=== PATIENT | male | born 1950 | race Caucasian/White ===

== ENCOUNTER 2017-01-13 19:00 | Emergency (ER) | payer BC ==
[~2017-01-13] VITALS: Ht 167.6 cm; Wt 85.6 kg
[~2017-01-13 19:00] MED LIST: ASCO500T3 PO; CHOL20009 PO; CLBCRM30 EXT; ETAN50IN2 SQ; FOLI1TAB7 PO; INDO75CA PO; LANS30CA12 PO; METH2.5T PO; PRED-301 PO; RANI150T3 PO; TRIA0.1C20 TOP
[2017-01-13 19:05] VITALS: TEMP 36.8; Ht 167.6 cm; Wt 85.6 kg
[2017-01-13] MEDS ORDERED: MoRPHine SULFATE 10 MG/ML CARP/VIAL IM STA (19:17)
[2017-01-13] MEDS ORDERED: KETOROLAC TROMETHAMINE 60 MG/2 ML VIAL IM STA (19:17)
--- NOTE | 2017-01-13 20:04 | DIAGNOSTIC IMAGING REPORT ---
LUMBAR SPINE 5 VIEWS HISTORY: Right side low back pain with sciatica sx COMPARISON: Lumbar spine 09/20/2013. FINDINGS: There is no fracture. Large amount well-formed stool seen within the colon, unchanged. Multiple metallic sutures are also within the lower pelvis. Multiple pelvic phleboliths. Cholecystectomy. The sacrum is intact. 3 mm of retrolisthesis of L5 on S1, unchanged. Mild disc space narrowing at L5-S1 with vacuum phenomenon. Mild facet osteoarthritis within the lower lumbar spine. IMPRESSION: No fracture or subluxation within the lumbar spine. No change in the mild degenerative changes within the lower lumbar spine. Electronically signed by: Javier Sanchez M.D. 01/13/2017 8:02 PM Dictated Date/Time: 01/13/2017 8:00 PM
[2017-01-13] MEDS ORDERED: PRD/1 PO (20:11)
[2017-01-13 21:19] VITALS: BP 131/83; PULSE 57; O2SAT 95
[2017-01-13] MEDS ORDERED: OXYC1TAB3 PO (21:19)
[2017-01-13] MEDS ORDERED: CYCL10TA6 PO (21:19)
[2017-01-13] MEDS ORDERED: PRED20TA2 PO (21:19)
[2017-01-13] MEDS ORDERED: OXYCODONE IR HOME PACK PO ONE (21:30)
--- NOTE | 2017-01-14 01:02 | EMERGENCY ROOM VISIT NOTE ---
ED Visit Note First contact with patient: 19:07 CHIEF COMPLAINT: Low back pain HISTORY OF PRESENT ILLNESS: This 66-year-old male patient presents to the emergency department complaining of pain in the low back which began worsening over the past one day. The pain does radiate down his right leg. The pain was gradual in onset, is now constant and worse with movement. The patient notes the pain as dull and a 7/10. The patient has taken Tylenol without relief of the pain. The patient denies any loss of control of their bowel or bladder functions. There has been no leg numbness or weakness, and no change in sensation. No nausea or vomiting or abdominal pain. No chest pain or shortness of breath. The patient has periodically had symptoms like this in the past, but does not have a history of back surgery. No dysuria or increased urinary frequency. REVIEW OF SYSTEMS: A review of systems was performed with positives and pertinent negatives listed in the history of present illness. All other systems were reviewed and are negative. ALLERGIES: See EMR MEDICATIONS: See EMR PMH: See EMR SOCIAL HISTORY: Lives with family PHYSICAL EXAM: VITALS: Vitals are noted on the nurse's note and reviewed by myself. Vital signs stable. GENERAL: White male, in no acute distress, nondiaphoretic, well-developed well- nourished. SKIN: The skin was without rashes, erythema, edema, or bruising. Capillary refill less than 2 seconds. NECK: Supple without nuchal rigidity. No cervical spine tenderness. No paraspinous muscle tenderness. HEART: Regular rate and rhythm without murmurs gallops or rubs. LUNGS: Clear to auscultation bilaterally without wheezes, rales or rhonchi. ABDOMEN: Positive bowel sounds x 4. Normal tympanic percussion. Soft, nontender, without masses or organomegaly. Harrell sign negative. MUSCULOSKELETAL: No muscle atrophy, erythema, or edema noted of the back. There is right-sided lower tenderness over the lumbar spinous processes. There is no tenderness over the paraspinous muscles. There is no tenderness over the thoracic spine or paraspinous muscles. There are no muscle spasms present. The patient is slow to move around with maximum tenderness with flexion. Positive right straight leg raise test. NEURO: Patient was alert and oriented to person place and time. Normal sensation to light and sharp touch. Deep tendon reflexes 2+ in the lower extremities. Dorsalis pedis pulse 2+ bilaterally. Strength 5/5 and equal in the bilateral lower extremities. LUMBAR SPINE 5 VIEWS HISTORY: Right side low back pain with sciatica sx COMPARISON: Lumbar spine 09/20/2013. FINDINGS: There is no fracture. Large amount well-formed stool seen within the colon, unchanged. Multiple metallic sutures are also within the lower pelvis. Multiple pelvic phleboliths. Cholecystectomy. The sacrum is intact. 3 mm of retrolisthesis of L5 on S1, unchanged. Mild disc space narrowing at L5-S1 with vacuum phenomenon. Mild facet osteoarthritis within the lower lumbar spine. IMPRESSION: No fracture or subluxation within the lumbar spine. No change in the mild degenerative changes within the lower lumbar spine. EMERGENCY DEPARTMENT COURSE: Physical examination were performed. Nursing notes and EMR were reviewed. The patient presents have right-sided low back pain that radiates down his right leg. He does have a positive straight leg raise. I discussed options of care with the patient and elected to provide him IM morphine and IM Toradol. X-rays were obtained and does not show evidence of fracture or subluxation. On repeat evaluation the patient felt much better and was very comfortable with his pain. Overall the patient seems stable for discharge home. He is without neurologic deficit. I suspect sciatica and will give him a course of prednisone, Flexeril, and OxyIR. The patient is to follow with his PCP or orthopedist for further care and management. He is otherwise invited back to the ER with any new, worsening, or concerning symptoms. Problem List Medical Problems: (1) Gastroesophageal reflux Status: Chronic (2) Psoriatic arthritis Status: Chronic Surgical Problems: (1) H/O bilateral inguinal hernia repair Status: Resolved (2) H/O umbilical hernia repair Status: Resolved (3) Hx of cholecystectomy Status: Resolved Current/Historical Medications Scheduled Ascorbic Acid (Vitamin C), 1 TAB PO QAM Cholecalciferol (Vitamin D), 2,000 UNITS PO QAM Cyclobenzaprine Hcl (Flexeril), 10 MG PO TID Etanercept (Enbrel), 50 MG SQ WK Folic Acid (Folvite), 1 TAB PO QAM Indomethacin Ext Rel (Indocin Ext Rel), 75 MG PO BID Lansoprazole (Prevacid), 30 MG PO QAM Methotrexate Sodium (Methotrexate), 6 TAB PO WK Oxycodone Immediate Rel Tab (Roxicodone Ir), 1 TAB PO Q6 Prednisone (Prednisone), 2 MG PO DAILY Prednisone (Prednisone Tab), 2 TAB PO DAILY Ranitidine Hcl (Zantac), 150 MG PO QPM Scheduled PRN Clobetasol Propionate (Clobetasol Propionate Cream 0.05%), 1 APPLN EXT BID PRN for RN Allergies Coded Allergies: Food (Verified Allergy, Unknown, CRAB CAKES-SOMETIMES RASH, 01/14/16) Oily Fish (Verified Allergy, Unknown, ALLERGY TO SEAFOOD-HIVES, 01/14/16) Shellfish (Verified Allergy, Unknown, ALLERGY TO SEAFOOD-HIVES, 01/14/16) Tamsulosin (Verified Allergy, Unknown, HEADACHES, 01/14/16) White Fish (Verified Allergy, Unknown, ALLERGY TO SEAFOOD-HIVES, 01/03/16) Vital Signs Date Time Temp Pulse Resp B/P (MAP) Pulse Ox O2 Delivery O2 Flow Rate FiO2 01/13/17 21:19 57 20 131/83 95 Room Air 01/13/17 19:05 36.8 62 16 141/88 95 Room Air Medications Administered Medications (Trade) Dose Ordered Sig/Eric Route Start Time Stop Time Status Last Admin Dose Admin Morphine Sulfate (MoRPHine SULFATE INJ) 8 mg NOW STAT IM 01/13/17 19:17 01/13/17 19:19 DC 01/13/17 19:38 8 MG Ketorolac Tromethamine (Toradol Inj) 60 mg NOW STAT IM 01/13/17 19:17 01/13/17 19:19 DC 01/13/17 19:37 60 MG Oxycodone HCl (Roxicodone Immediate Rel 5MG Home Pack) 1 homepack UD ONCE PO 01/13/17 21:30 01/13/17 21:31 DC 01/13/17 21:26 1 HOMEPACK Departure Information Impression Primary Impression: Low back pain with sciatica Dispostion Home / Self-Care Condition GOOD Prescriptions Cyclobenzaprine Hcl (FLEXERIL) 10 Mg Tab 10 MG PO TID for 7 Days, #21 TAB Prov: Marcial Fernandez PA-C 01/13/17 Oxycodone Immediate Rel Tab (ROXICODONE IR) 5 Mg Tab 1 TAB PO Q6 for Pain, #12 TAB Prov: Marcial Fernandez PA-C 01/13/17 Prednisone (Prednisone Tab) 20 Mg Tab 2 TAB PO DAILY for 5 Days, #10 TAB Prov: Marcial Fernandez PA-C 01/13/17 Forms HOME CARE DOCUMENTATION FORM, IMPORTANT VISIT INFORMATION Patient Instructions My [facility] Additional Instructions You were seen and evaluated today on an emergency basis only. This is not a substitute for, or an effort to provide, complete comprehensive medical care. It is not possible to recognize and treat all injuries or illnesses in a single emergency department visit. For this reason it is recommended that you followup with your primary care physician or orthopedist if symptoms persist over the next week. For baseline pain relief you may alternate ibuprofen and acetaminophen every 4 hours for pain control. Take 600 mg ibuprofen (Advil) and then 4 hours later take 1000 mg acetaminophen (Tylenol). Do not take more than 3000 mg acetaminophen in a single day. Flexeril 1 tablet up to 3 times a day as needed for muscle spasms. No driving, working, or alcohol use with Flexeril. Oxycodone (OxyIR) 5mg: Take ONE pill every SIX hours for breakthrough pain. Avoid alcohol, operating machinery or dangerous equipment, working on ladders or roofs, DRIVING, or situations where being under the influence may be dangerous. It is recommended to use an [id number] stool softener such as Colace, 100mg twice daily while taking this medication to avoid constipation. Take prednisone as prescribed You are welcome to return to the emergency department anytime with new, worsening, or concerning symptoms.
== END 2017-01-13 21:35 | disposition home or self-care (01) ==
LOC: C.EDB 19:01 → C.EDD 21:35
DX: M54.40 Lumbago with sciatica, unspecified side (principal); K21.9 Gastro-esophageal reflux disease without esophagitis; Z90.49 Acquired absence of other specified parts of digestive tract; Z79.899 Other long term (current) drug therapy; Z88.8 Allergy status to other drugs, medicaments and biological substances; Z91.018 Allergy to other foods

== ENCOUNTER → 2017-03-23 | Outpatient (CLI) | payer BC ==
[~2017-03-23] MED LIST changes: +OXYC1TAB3 PO; +PRD/1 PO; -PRED-301 PO; -TRIA0.1C20 TOP
--- NOTE | 2017-03-23 21:44 | DIAGNOSTIC IMAGING REPORT ---
LUMBAR SPINE W/O CONTRAST HISTORY: Pain. Radiculopathy. LOWER BACK PAIN TECHNIQUE: Multiplanar multisequence MRI of the lumbar spine was performed without the use of contrast. COMPARISON: 01/24/2015 FINDINGS: For the purpose of the report the L5-S1 disc space will be located on axial image 27 of 30. Moderate degenerative disc changes throughout. Minimal grade 1 reversal subluxation L5 on S1 unchanged from the prior study. No bone marrow replacing process. L1-L2: Minimal osteophytic narrowing right neuroforamina. Otherwise negative study L2-L3: Mild broad-based disc herniation. Mild impact anterior thecal sac. Minimal narrowing of the neuroforamina bilaterally. No significant change in the prior study. L3-L4: Broad-based right central bulging disc versus mild disc herniation. Moderate narrowing right neuroforamina. Similar/slightly progressive compared to the prior study. L4-L5: Moderate/slightly progressive multifactorial narrowing of the spinal canal. Moderate narrowing of the neuroforamina bilaterally. Findings are again slightly progressive compared to the prior exam. L5-S1: Right posterior bulging disc with minimal impact anterior thecal sac and moderate narrowing of the neuroforamina bilaterally. Findings are slightly progressive compared to the prior exam. IMPRESSION: 1. Multilevel bulging disc components with moderate bilateral narrowing of the neuroforamina as described. 2. Findings at L4-L5 are slightly progressive and are consistent with moderate/rather significant multifactorial narrowing of the spinal canal and neural foramina. 3. Right central bulging disc L5-S1 with narrowing of the neuroforamina bilaterally mildly progressive from the prior study. 4. All remaining levels are similar The above report was generated using voice recognition software. It may contain grammatical, syntax or spelling errors. Electronically signed by: Dequan Xavier M.D. 03/23/2017 9:43 PM Dictated Date/Time: 03/23/2017 9:39 PM
== END | disposition home or self-care (01) ==
LOC: C.MRI 20:18
PROVIDERS: ATTEND Physician Assistant
DX: M54.5 Low back pain (principal)

== ENCOUNTER → 2017-04-16 | Outpatient (CLI) | payer BC ==
[~2017-04-16] MED LIST changes: +OPTIRAY 320 IV PRN
--- NOTE | 2017-04-16 11:11 | DIAGNOSTIC IMAGING REPORT ---
CHEST CT WITH CONTRAST CT DOSE: 399.83 mGy.cm HISTORY: Follow-up LUNG NODULE TECHNIQUE: Multiaxial CT images of the chest were performed following the intravenous administration of contrast. A dose lowering technique was utilized adhering to the principles of ALARA. COMPARISON: Chest CT 01/03/2016. FINDINGS: The central airways are patent. No pleural effusions. No pneumothorax. Linear density within the lingula remain stable and likely represents scarring. There are again noted a few scattered subcentimeter pulmonary nodules. Dominant nodule within the left lower lobe on image 239 measures 6 mm. These nodules demonstrate greater than 2 year stability. No focal lung consolidations to suggest pneumonia. No suspicious lytic or blastic osseous lesions. Cholecystectomy. Stable punctate calcified granulomas within the liver and spleen. Stable left hepatic lobe cyst. No mediastinal or hilar lymphadenopathy. Calcified mediastinal and hilar lymph nodes. Normal caliber thoracic aorta. The central pulmonary arteries are patent. IMPRESSION: No change compared to the prior studies. Stable subcentimeter pulmonary nodules which demonstrate greater than 2 year stability. Therefore, these are likely benign. Electronically signed by: Jvaier Sanchez M.D. 04/16/2017 11:10 AM Dictated Date/Time: 04/16/2017 11:03 AM
== END | disposition home or self-care (01) ==
LOC: C.CTS 10:45
PROVIDERS: ATTEND Family Medicine
DX: R91.8 Other nonspecific abnormal finding of lung field (principal)

== ENCOUNTER → 2017-05-04 | Outpatient (CLI) | payer BC ==
[~2017-05-04] MED LIST changes: -OPTIRAY 320 IV PRN
== END | disposition home or self-care (01) ==
LOC: C.MAMM 13:15
PROVIDERS: ATTEND Family Medicine
DX: Z79.52 Long term (current) use of systemic steroids (principal); M85.89 Other specified disorders of bone density and structure, multiple sites; M81.0 Age-related osteoporosis without current pathological fracture

== ENCOUNTER → 2017-06-16 | Day surgery (SDC) | payer BC ==
[2017-06-09 07:38] VITALS: Ht 170.2 cm; Wt 81.8 kg
[~2017-06-16] VITALS: Ht 170.2 cm; Wt 81.8 kg
[~2017-06-16] MED LIST changes: -ASCO500T3 PO; +BUPIVACAINE 0.25% 2.5MG/ML PF 10 ML VIAL ONE; +CLB/200 PO; -INDO75CA PO; +IOPAMIDOL INJ 61% 15 ML VIAL ONE; +LIDOCAINE HCL 1% MPF 5 ML VIAL ONE; -OXYC1TAB3 PO; -PRD/1 PO; +PRED-301 PO; -RANI150T3 PO
--- NOTE | 2017-06-16 14:15 | History & Physical Bridge - SC ---
H&P Re-Evaluation Bridge Note: I have examined the patient, reviewed the History & Physical and in the interval since the performance of the History & Physical I have noted the following changes of clinical significance: No changes noted
[2017-06-16 14:40] VITALS: TEMP 36.5
--- NOTE | 2017-06-16 14:46 | Discharge Instructions ---
Discharge Instructions Date of Service Jun 16, 2017. Visit Reason for Visit: Lumbosacral Radiculopathy Discharge Discharge Diagnosis / Problem: right leg pain Discharge Goals Goal(s): Decrease discomfort, Improve function Activity Recommendations Activity Limitations: resume your previous activity Anesthesia . Post Anesthesia Instructions: If you have had General Anesthesia or IV Sedation: * Do not drive today. * Resume driving when surgeon permits. * Do not make important decisions or sign legal documents today. * Call surgeon for: 1. Temperature elevations greater than 101 degrees F. 2. Uncontrollable pain. 3. Excessive bleeding. 4. Persistent nausea and vomiting. 5. Medication intolerance (nausea, vomiting or rash). * For nausea and vomiting use only clear liquids such as: tea, soda, bouillon until nausea subsides, then gradually increase diet as tolerated. * If you have any concerns or questions, call your surgeon's office. If physician is unavailable and it is an emergency, call 911 or go to the nearest emergency room. . Diet Recommendations Recommended Home Diet: resume previous diet Procedures Procedures Performed: RIGHT SI TRANSFORAMINAL EPIDURAL STEROID INJECTION. Pending Studies Studies pending at discharge: no Medical Emergencies . Who to Call and When: Medical Emergencies: If at any time you feel your situation is an emergency, please call 911 immediately. . Non-Emergent Contact Non-Emergency issues call your: Specialist . . "Provider Documentation" section prepared by Chico Rodriguez. .
[2017-06-16 14:52] VITALS: BP 136/82; PULSE 62; O2SAT 95
--- NOTE | 2017-06-16 15:09 | OPERATIVE REPORT ---
DATE OF OPERATION: 06/16/2017 PREOPERATIVE DIAGNOSIS: Right S1 radiculopathy. POSTOPERATIVE DIAGNOSIS: Same. PROCEDURE: Right selective S1 nerve root block via transforaminal approach. INDICATIONS: The patient is a 66-year-old white male that was referred by Dr. Dequan Bullock for suspicion of an S1 radiculopathy. He requested a selective nerve root block to confirm this as the etiology of the patient's pain radiates from the back into the calf and into the foot. PHYSICAL EXAMINATION: GENERAL: Pleasant male seated comfortably in no apparent distress. MUSCULOSKELETAL: Lumbar paraspinal muscles were palpated. He had some sensations to palpation of his right sciatic notch. He had no issues with forward flexion or extension. He had intact sensation and negative seated straight leg raises. CONSENT: Verbal and written consent was obtained from the patient. Risks and benefits were reviewed. Risks include, but are not limited to abscess and allergic reaction. The patient wishes to proceed. DESCRIPTION OF PROCEDURE: The patient was taken back into the special procedures room of the [facility], where he was maintained in a prone position. Backside was cleansed with Betadine x3 and a dry sterile dressing was applied. Fluoroscope was used to identify the S1 foramen on the right side. Overlying skin was anesthetized with 4 mL of lidocaine 1% with a 25-gauge 1-1/2 inch needle. A 22-gauge 3-1/2 inch spinal needle was then directed under fluoroscopic guidance into the S1 foramen. It was advanced under fluoroscopic guidance and the patient began to feel some pressure into the buttocks. Then, Isovue 300 contrast 0.25 of a mL was injected in which demonstrated it to be within the foramen and tracking the S1 nerve root superiorly. He then underwent injection after negative aspiration of 40 mg of Depo-Medrol and 1.5 mL of bupivacaine 0.25%. Injection was well tolerated. DISPOSITION: 1. The patient was taken out into the discharge recovery area, where he will be discharged home once discharge criteria have been met. 2. Follow up in the [facility] office in 2-4 weeks. I attest to the content of the Intraoperative Record and any orders documented therein. Any exceptions are noted below. JENNIFER
== END | disposition home or self-care (01) ==
LOC: X.SURG 13:12
PROVIDERS: ATTEND Physical Medicine & Rehabilitation
DX: M54.18 Radiculopathy, sacral and sacrococcygeal region (principal)

== ENCOUNTER → 2017-09-24 | Outpatient (CLI) | payer BC ==
[~2017-09-24] MED LIST changes: -BUPIVACAINE 0.25% 2.5MG/ML PF 10 ML VIAL ONE; -FOLI1TAB7 PO; +FOLI1TAB8 PO; -IOPAMIDOL INJ 61% 15 ML VIAL ONE; -LIDOCAINE HCL 1% MPF 5 ML VIAL ONE
--- NOTE | 2017-09-24 13:22 | DIAGNOSTIC IMAGING REPORT ---
LUMBAR SPINE 2 OR 3 VIEWS HISTORY: 67 years-old Male S/P LUMBAR DISCECTOMY status post discectomy COMPARISON: Lumbar spine radiographs 01/13/2017, spot fluoroscopic images 06/16/2017 TECHNIQUE: 2 views of the lumbar spine FINDINGS: Mild levoscoliosis of the lumbar spine. Multilevel intervertebral disc space narrowing redemonstrated, most pronounced at L5-S1. Multilevel endplate spurring and moderate facet arthrosis. No acute fracture or subluxation identified. Cholecystectomy clips are noted. Prior abdominal wall herniorrhaphy. A few nonspecific small bowel air-fluid levels of the left midabdomen. Moderate volume of formed stool involves the right hemicolon. IMPRESSION: 1. No acute fracture or subluxation. 2. Mild levoscoliosis with unchanged appearance of multilevel intervertebral disc space narrowing, endplate spurring and facet arthrosis as above. The above report was generated using voice recognition software. It may contain grammatical, syntax or spelling errors. Electronically signed by: Ashish Deleon M.D. 09/24/2017 1:21 PM Dictated Date/Time: 09/24/2017 1:09 PM
== END | disposition home or self-care (01) ==
LOC: C.RDSM 09:32
PROVIDERS: ATTEND Orthopaedic Surgery
DX: Z98.890 Other specified postprocedural states (principal)

== ENCOUNTER 2018-11-04 16:41 | Observation (INO) ==
[2018-11-04 18:07] LABS: Basophils # (auto) 0.01 K/uL (0-0.2); Basophils % (auto) 0.2 %; Eosinophils # (auto) 0.08 K/uL (0-0.5); Eosinophils % (auto) 1.3 %; Hematocrit (blood only) 38.1 % (42-52); Hemoglobin 13.1 g/dL (14.0-18.0); Immature Granulocytes # (auto) 0.03 K/uL (0.00-0.02); Immature Granulocytes % (auto) 0.5 %; Lymphocytes # (auto) 0.91 K/uL (1.2-3.4); Lymphocytes % (auto) 14.5 %; Mean Corpuscular Hgb Conc 34.4 g/dL (32-36); Mean Corpuscular Volume 94.1 fL (80-100); Mean Platelet Volume 10.7 fL (7.4-10.4); Monocytes # (auto) 1.06 K/uL (0.11-0.59); Monocytes % (auto) 16.9 %; Neutrophils % (auto) 66.6 %; Platelet Count 239 K/uL (130-400); RDW Coefficient of Variation 15.6 % (11.5-14.5); RDW Standard Deviation 53.6 fL (36.4-46.3); Red Blood Count 4.05 M/uL (4.7-6.1); White Blood Count 6.29 K/uL (4.8-10.8)
[2018-11-04 18:21] LABS: Partial Thromboplastin Ratio 0.8; Partial Thromboplastin Time 21.4 Seconds (21.0-31.0); Prothrombin Time 10.3 Seconds (9.0-12.0)
[2018-11-04 18:26] LABS: Alanine Aminotransferase 31 U/L (12-78); Albumin Level 3.7 gm/dl (3.4-5.0); Aspartate Aminotransferase 22 U/L (15-37); BUN Creatinine Ratio 21.9 (10-20); Blood Urea Nitrogen 24 mg/dl (7-18); Calcium 9.5 mg/dl (8.5-10.1); Carbon Dioxide 27 mmol/L (21-32); Chloride 107 mmol/L (98-107); Creatinine Clr Calc Pharmacy 63.6 ml/min; Est GFR (African American) 79.8; Est GFR (Non-African American) 68.9; Glucose 71 mg/dl (70-99); Potassium 3.9 mmol/L (3.5-5.1); Sodium 138 mmol/L (136-145)
[2018-11-04 18:31] LABS: Albumin Globulin Ratio 0.8 (0.9-2); Alkaline Phosphatase 92 U/L (45-117); Bilirubin,Total 0.4 mg/dl (0.2-1); Globulin 4.9 gm/dl (2.5-4.0); Total Protein 8.6 gm/dl (6.4-8.2); Troponin I < 0.015 ng/ml (0-0.045)
--- NOTE | 2018-11-04 18:57 | History & Physical Report ---
Date of Service November 04, 2018 Assessment & Plan (1) Pulmonary embolus: Seen incidentally on chest CT which was obtained as outpatient by Dr. Jefferson in preparation for tissue biopsy for definitive diagnosis of his intraabdominal mass. His solitary PE is likely cancer-related as there is high suspicion he has lymphoma. Plan - 1. heparin drip overnight - use adult weight-based with bolus. 2. I placed a phone call to general surgery regarding his chest CT results. If they feel they could do an excisional lymph node biopsy from the right axillae on Wednesday then would keep the patient on heparin through the weekend. 3. If biopsy is not planned for Wednesday then simply transition to PO xarelto 15mg BID tomorrow AM if cost is acceptable. 4. dopplers of both legs to assess for DVT. Present on Admission?: Yes (2) Intraabdominal mass: Discovered 2 weeks ago. Highly concerning for lymphoma. The patient's case was discussed at the most recent Tumor Board. The plan is for biopsy of the intraabdominal mass by Dr. Jose Larson unless an easier option is available for biopsy (axillary lymph node, etc). I reviewed the patient's CT scans today with Dr. Sr from thoracic surgery and he does not feel that a biopsy of a chest lymph node would give us a diagnosis. [facility]. If they can perform a biopsy of the axillary lymph node on Wednesday then would keep the patient on heparin through the weekend. If no biopsy is planned would simply d/c him home tomorrow with xarelto BID and have him f/u with Drs. Larson and Ronny next week as outpatient. The above was discussed with the patient and his . Present on Admission?: Yes (3) Psoriatic arthritis: Stable. Continue prednisone. Continue celebrex but will need to check with pharmacy to see if it is compatible with xarelto. Present on Admission?: Yes (4) Gastroesophageal reflux: Cont PPI. Present on Admission?: Yes (5) DVT prophylaxis: Patient to be placed on heparin infusion. If no biopsy is planned early next week then I will likely d/c patient home tomorrow with oral novel agent for the PE. Thus, place on observation status for now. Care d/w Drs. Jefferson and Orin. History of Present Illness Chief Complaint: abnormal chest CT Primary Care Provider: Han Turpin Very pleasant 68yo male with recently discovered intra-abdominal mass concerning for lymphoma and long-standing psoriatic arthritis on chronic prednisone who presents as a referral from the [facility] due to incidentally discovered RLL pulmonary embolus. About 2 weeks ago the patient presented to our ER with flu-like symptoms and abdominal pain. CT of the abdomen/pelvis revealed a large intra-abdominal mass. He was referred to Dr. Harrison Jefferson [facility]. Dr. Jefferson recommended a CT of the chest to see if there was a more easily accessible lymph node or other tissue that would be amenable to biopsy. The CT chest was completed today and this showed the solitary pulmonary embolus. Following the CT the patient was referred to the ER for management. Mr. Jim states that despite 2+ months of nightsweats, fatigue, weight loss, abdominal pain & bloating, occasional fevers with chills, and mild dyspnea he has maintained an active lifestyle. 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 He reports a mild cough for 1-2 days but no central chest pain nor pleuritic chest pain. He has dyspnea only with extreme exertion or with a long walk. He has never had DVT or PE. Lastly, the patient had been taking Enbrel for his psoriatic arthritis and this was stopped by Dr. Jefferson because of the high concern of lymphoma. His arthritis has been stable despite being off of such. Allergies Allergy/AdvReac Type Severity Reaction Status Date / Time Fish Containing Products Allergy Intermediate ALLERGY TO Verified 11/04/18 18:26 SEAFOOD-HIVES shellfish derived Allergy Intermediate ALLERGY TO Verified 11/04/18 18:26 SEAFOOD-HIVES tamsulosin AdvReac Mild HEADACHES Verified 11/04/18 18:26 CRAB CAKES Allergy Intermediate hives Uncoded 11/04/18 18:26 Home Medications Home Medications Medication Instructions Recorded Confirmed Type celecoxib [Celebrex] 200 mg PO QAM 11/04/18 11/04/18 History cholecalciferol (vitamin D3) 2,000 unit PO QAM 11/04/18 11/04/18 History [Vitamin D3] clobetasol 1 applic TOPICAL BID PRN 11/04/18 11/04/18 History folic acid 1 mg PO QAM 11/04/18 11/04/18 History lansoprazole [Prevacid] 30 mg PO BID PRN 11/04/18 11/04/18 History methotrexate sodium 15 mg PO WK 11/04/18 11/04/18 History prednisone 5 mg PO QAM 11/04/18 11/04/18 History Past Med/Surg History Medical History Psoriatic arthritis Surgical History H/O inguinal hernia repair H/O umbilical hernia repair S/P laparoscopic cholecystectomy Status post lumbar laminectomy Family History Father , age 86 Congestive heart failure Stroke Mother , age 87 Diabetes Social History Preferred Language: [place]raini marital status details: , 1 son Current Living Situation: Spouse 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 Feels Safe at Home: Yes Smoking Status: Former smoker Cigarettes Per Day: 1 ppd Smoking End Date: 1971 Hx Alcohol Use: Yes Review of Systems Constitutional: + fever, + chills, + fatigue, + anorexia and + weight loss (at least 10 pounds) Eyes: no worsening vision Ear, Nose, Mouth, Throat: no nasal congestion, no sore throat and no dysphagia Respiratory: + cough and + dyspnea on exertion (with extreme exertion); no hemoptysis, no pain on inspiration and no pain with cough Cardiovascular: no chest pain, no orthopnea, no paroxysmal nocturnal dyspnea and no edema Gastrointestinal: + abdominal pain and + bloating; no nausea, no vomiting, no constipation, no diarrhea/loose stools and no blood in stools Genitourinary: no dysuria Musculoskeletal: no back pain and no joint pain Integumentary: + rash (from psoriasis) Neurologic: no paralysis and no numbness Psychiatric: no depression and no anxiety Endocrine: denies diabetes Hematologic / Lymphatic: + easy bruising, + night sweats and + unexplained weight loss; no lymphadenopathy Allergy / Immunological: no urticaria and no wheezing Physical Exam Constitutional: well developed, well nourished and average body habitus; no acute distress, not ill appearing and no altered mental status Eyes: PERRL ENMT: external ear and nose normal, oropharynx normal Ears: no TM abnormality Neck: trachea midline, no thyromegaly Respiratory: normal respiratory effort, lungs clear to auscultation Cardiovascular: Rate/Rhythm: regular rate and regular rhythm Heart Sounds: normal S1, normal S2 and + murmur (1/6 SABRINA LSB) Vessels: posterior tibial pulses present and dorsalis pedis pulses present; no JVD Extremities: no edema Gastrointestinal (Abdomen): Inspection/Auscultation: + abdomen distended Percussion/Palpation: + abdomen tender (minimal central abdomen); no hepatosplenomegaly and no hernia Musculoskeletal: no cyanosis or clubbing, extremities motor strength 5/5 Skin: scattered psoriatic plaques - primarily on legs (shins) Neurologic: deep tendon reflexes 2+ bilaterally and moves all extremities; no focal motor deficits Psychiatric: A+Ox3, euthymic affect Lymphatic: + axillary lymphadenopathy (1cm nodes b/l ); no cervical lymphadenopathy and no inguinal lymphadenopathy Results & Data Vital Signs (Past 12 Hours) Vital Signs Temp Pulse Resp BP Pulse Ox 11/04/18 18:31 70 22 129/84 97 11/04/18 18:04 68 15 126/78 95 11/04/18 17:59 76 18 95 11/04/18 16:46 36.8 C 76 18 138/76 95 Laboratory Results Laboratory Results - last 24 hr 11/04/18 11/04/18 11/04/18 17:47 17:47 17:47 WBC 6.29 RBC 4.05 L Hgb 13.1 L Hct 38.1 L MCV 94.1 MCH 32.3 MCHC 34.4 RDW Std Deviation 53.6 H RDW Coeff of Chin 15.6 H Plt Count 239 MPV 10.7 H Immature Gran % (Auto) 0.5 Neut % (Auto) 66.6 Lymph % (Auto) 14.5 [place] % (Auto) 16.9 Eos % (Auto) 1.3 Baso % (Auto) 0.2 Immature Gran # (Auto) 0.03 H Neut # (Auto) 4.20 Lymph # (Auto) 0.91 L [place] # (Auto) 1.06 H Eos # (Auto) 0.08 Baso # (Auto) 0.01 PT 10.3 INR 1.0 APTT 21.4 PTT Ratio 0.8 Sodium 138 Potassium 3.9 Chloride 107 Carbon Dioxide 27 Anion Gap 4.0 BUN 24 H Creatinine 1.09 Est Cr Clr Drug Dosing 63.6 Est GFR ( Amer) 79.8 Est GFR (Non-Af Amer) 68.9 BUN/Creatinine Ratio 21.9 H Glucose 71 Calcium 9.5 Total Bilirubin 0.4 AST 22 ALT 31 Alkaline Phosphatase 92 Troponin I < 0.015 Total Protein 8.6 H Albumin 3.7 Globulin 4.9 H Albumin/Globulin Ratio 0.8 L Lipase [address] chest: IMPRESSION: 1. Right lower lobe pulmonary artery filling defect indicative of pulmonary embolism. 2. Slight increased prominence of axillary lymph nodes, the largest of which is located in the right measuring 12 x 9 mm 3. Increased prominence of right cardiophrenic angle lymph nodes. 4. Borderline enlarged 9 mm AP window lymph node 5. Mildly enlarged right hilar lymph node 6. No evidence of focal pulmonary consolidation. No suspicious pulmonary masses. EKG - NSR with sinus arrhythmia; J-point elevation lateral leads - early repolar ization; no acute ST changes. Code Status & VTE Plan Code Status full code level 1 VTE Prophylaxis Plan VTE Prophylaxis will be ordered: Yes (1) Pulmonary embolus Pulmonary embolism type: other Chronicity: acute Acute cor pulmonale presence: without acute cor pulmonale Qualified Code(s): I26.99 - Other pulmonary embolism without acute cor pulmonale (2) Gastroesophageal reflux Esophagitis presence: without esophagitis Qualified Code(s): K21.9 - Gastro- esophageal reflux disease without esophagitis
--- NOTE | 2018-11-04 20:44 | Ultrasound Report ---
BILATERAL LOWER EXTREMITY VENOUS DOPPLER HISTORY: Pulmonary embolus. Assess for DVT. COMPARISON STUDY: Venous Doppler 02/16/2015. FINDINGS: Nonocclusive thrombus seen within the bilateral posterior tibial veins and a left peroneal vein. Otherwise, the remaining bilateral lower extremity deep venous structures are patent. IMPRESSION: Nonocclusive thrombus seen within the bilateral posterior tibial veins and a left peroneal vein. Electronically signed by: Javier Sanchez M.D. 11/04/2018 8:43 PM
[2018-11-04] MEDS ORDERED: ONDANSETRON INJ 2 MG/ML 2 ML VIAL IV PRN (20:48)
[2018-11-04] MEDS ORDERED: EMBELINE E CREAM 0.05% 15 GM EXT PRN (20:48)
[2018-11-04] MEDS ORDERED: ACETAMINOPHEN 325 MG TAB PO PRN (20:48)
--- NOTE | 2018-11-04 20:55 | Emergency Department Note ---
Entered by Omkar Brady acting as a scribe for History of Present Illness General Chief complaint: Abnormal Labs/Diagnostic Testing Stated complaint: PE Time Seen by Provider: 11/04/18 17:37 Source: patient History of Present Illness Provider complaint: Abnormal CT scan Onset (ago): hour(s) (This morning) Location: chest Radiation: non-radiation Pain Consistency: + intermittent Maximum Pain Intensity: 2 Relieved By: + none Exacerbated By: + none Associated symptoms: + chest pain and + other (No leg swelling); no maya sea/vomiting and no shortness of breath The patient is a 68 year old male who presents to the Emergency Room after being told to come following a CT scan that showed he has a blood clot in his lung. The CT scan was done this morning to observe his lymph nodes after doctors found a mass behind his bowel that they think might be lymphoma. The patient denies any leg pain but does have some intermittent right sided chest pain that started shortly before arrival. The patient also mentioned that the other day he was at his PCP's office getting treated for the flu and he had blood in his urine. Since this day he has not had any urinary symptoms. Home Medications Home Medications Medication Instructions Recorded Confirmed Type cholecalciferol (vitamin D3) 2,000 unit PO QAM 11/04/18 11/04/18 History [Vitamin D3] clobetasol 1 applic TOPICAL BID PRN 11/04/18 11/04/18 History folic acid 1 mg PO QAM 11/04/18 11/04/18 History methotrexate sodium 15 mg PO WK 11/04/18 11/04/18 History prednisone 5 mg PO QAM 11/04/18 11/04/18 History lansoprazole [Prevacid] 30 mg PO DAILY #30 cap 11/05/18 11/04/18 Rx rivaroxaban [Xarelto] 1 ea PO DIRECTED #51 ea 11/05/18 Rx rivaroxaban [Xarelto] 20 mg PO DAILY #30 tab 11/05/18 Rx Allergies Allergy/AdvReac Type Severity Reaction Status Date / Time Fish Containing Products Allergy Intermediate ALLERGY TO Verified 11/04/18 18:26 SEAFOOD-HIVES shellfish derived Allergy Intermediate ALLERGY TO Verified 11/04/18 18:26 SEAFOOD-HIVES tamsulosin AdvReac Mild HEADACHES Verified 11/04/18 18:26 CRAB CAKES Allergy Intermediate hives Uncoded 11/04/18 18:26 Past Med/Surg History Medical History Psoriatic arthritis Surgical History H/O inguinal hernia repair H/O umbilical hernia repair S/P laparoscopic cholecystectomy Status post lumbar laminectomy Family History Father , age 86 Congestive heart failure Stroke Mother , age 87 Diabetes Social History Preferred Language: Maori Type Disk Quality 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 and A total of 10 systems reviewed and were otherwise negative Physical Exam Vital Signs Vital Signs - 24 hr 11/04/18 16:46 11/04/18 17:59 11/04/18 18:04 Temperature 36.8 C Temperature Source Oral Sepsis Recent Fever Within 48 Hours No Sepsis New/Unexplained Change in Mental Status No Sepsis Action Taken by Nursing No Action Required Pulse Rate 76 76 68 Pulse Rate [Apical] Pulse Rate [Left Radial] Pulse Rate from SpO2 Sensor 70 Pulse Rhythm [Apical] Pulse Rhythm [Left Radial] Pulse Strength [Apical] Pulse Strength [Left Radial] Respiratory Rate 18 18 15 Respiratory Effort / Characteristics Respiratory Depth Respiratory Pattern Blood Pressure 138/76 126/78 Blood Pressure [Left Arm] Blood Pressure [Right Arm] Blood Pressure Mean 96 94 Blood Pressure Mean [Left Arm] Blood Pressure Mean [Right Arm] Blood Pressure Position [Left Arm] Blood Pressure Position [Right Arm] Pulse Oximetry 95 95 95 Oxygen Delivery Method Room Air Room Air Room Air 11/04/18 18:31 11/04/18 19:48 11/04/18 21:21 Temperature 36.7 C Temperature Source Oral Sepsis Recent Fever Within 48 Hours Sepsis New/Unexplained Change in Mental Status Sepsis Action Taken by Nursing Pulse Rate 70 Pulse Rate [Apical] 66 Pulse Rate [Left Radial] 59 L Pulse Rate from SpO2 Sensor 71 Pulse Rhythm [Apical] Regular Pulse Rhythm [Left Radial] Pulse Strength [Apical] Normal Pulse Strength [Left Radial] Respiratory Rate 22 16 18 Respiratory Effort / Characteristics Non-Labored Non-Labored Respiratory Depth Normal Normal Respiratory Pattern Regular Regular Blood Pressure 129/84 Blood Pressure [Left Arm] 117/73 Blood Pressure [Right Arm] 100/67 Blood Pressure Mean 99 Blood Pressure Mean [Left Arm] 87 Blood Pressure Mean [Right Arm] 78 Blood Pressure Position [Left Arm] Semi-fowlers Blood Pressure Position [Right Arm] Lying Pulse Oximetry 97 95 94 Oxygen Delivery Method Room Air Room Air Room Air 11/04/18 22:42 11/04/18 22:47 11/04/18 23:53 Temperature 36.8 C Temperature Source Oral Sepsis Recent Fever Within 48 Hours Sepsis New/Unexplained Change in Mental Status Sepsis Action Taken by Nursing Pulse Rate Pulse Rate [Apical] Pulse Rate [Left Radial] 47 L 67 Pulse Rate from SpO2 Sensor Pulse Rhythm [Apical] Pulse Rhythm [Left Radial] Regular Pulse Strength [Apical] Pulse Strength [Left Radial] Normal Respiratory Rate 18 Respiratory Effort / Characteristics Non-Labored Spontaneous Respiratory Depth Normal Respiratory Pattern Regular Blood Pressure Blood Pressure [Left Arm] 103/67 Blood Pressure [Right Arm] Blood Pressure Mean Blood Pressure Mean [Left Arm] 79 Blood Pressure Mean [Right Arm] Blood Pressure Position [Left Arm] Right Lateral Blood Pressure Position [Right Arm] Pulse Oximetry 95 Oxygen Delivery Method Room Air Room Air 11/05/18 07:56 11/05/18 10:41 Temperature 36.8 C 36.8 C Temperature Source Oral Sepsis Recent Fever Within 48 Hours Sepsis New/Unexplained Change in Mental Status Sepsis Action Taken by Nursing Pulse Rate Pulse Rate [Apical] 62 62 Pulse Rate [Left Radial] 67 Pulse Rate from SpO2 Sensor Pulse Rhythm [Apical] Irregular Pulse Rhythm [Left Radial] Pulse Strength [Apical] Normal Pulse Strength [Left Radial] Respiratory Rate 14 14 Respiratory Effort / Characteristics Non-Labored Spontaneous Respiratory Depth Normal Respiratory Pattern Regular Blood Pressure Blood Pressure [Left Arm] 112/74 112/74 Blood Pressure [Right Arm] 100/67 Blood Pressure Mean Blood Pressure Mean [Left Arm] 86 Blood Pressure Mean [Right Arm] Blood Pressure Position [Left Arm] Lying Blood Pressure Position [Right Arm] Pulse Oximetry 95 95 Oxygen Delivery Method Room Air GENERAL: Patient is awake, alert, and in no acute distress.Patient is resting comfortably and showing no signs of anxiety EYES: The conjunctivae are clear. The pupils are round and reactive. EARS, NOSE, MOUTH AND THROAT: The nose is without any evidence of any deformity. Mucous membranes are moist.Tongue is midline NECK: The neck is nontender and supple. RESPIRATORY: Normal respiratory effort is noted. There is no evidence of wheezing rhonchi or rales to auscultation. CARDIOVASCULAR: Regular rate and rhythm noted. There no murmurs rubs or gallops normal S1 normal S2 GASTROINTESTINAL: The abdomen is soft. Bowel sounds are present in all quadrants. Abdomen is nontender. MUSCULOSKELETAL/EXTREMITIES: There is no evidence of gross deformity. Full range of motion is noted in the hips and shoulders. SKIN: There is no obvious evidence of any rash. There are no petechiae, pallor or cyanosis noted. NEUROLOGIC: Patient is awake alert and oriented x3. Course 1741: The patient was evaluated in room C01B, and a complete history and physical examination were performed. I informed the patient given that a PE has been found, he will need to stay in the hospital. 1754: I spoke to Dr. Michael Dallas [facility] Hospitalist about the patient's case and he is going to accept him for further evaluation. Consultations Consultation #1: I spoke to Dr. Michael Dallas [facility] Hospitalist about the patient's case and he is going to accept him for further evaluation. Time: 17:54 Administered Medications Discontinued Medications Folic Acid (Folvite) 1 mg PO QAM [facility] Stop: 12/05/18 08:59 Last Admin: 11/05/18 08:51 Dose: 1 mg Documented by: [id number] Heparin Sodium/Dextrose () 1 ea IV Q15M [facility]; Protocol Stop: 12/04/18 20:58 Last Admin: 11/05/18 04:05 Dose: Not Given Documented by: [id number] Admin: 11/04/18 22:34 Dose: 1 ea Documented by: [id number] Admin: 11/04/18 22:11 Dose: 1 ea Documented by: [id number] Heparin Sodium (Porcine) 6,000 (units/ Syringe) 6 mls @ 1 mls/min IV ONE ONE Stop: 11/04/18 21:12 Last Admin: 11/04/18 21:39 Dose: 1 mls/min Documented by: [id number] Cosigned by: [id number] Heparin Sodium/Dextrose (Heparin Sodium/Dextrose) 25,000 units in 500 mls @ 25 mls/hr IV .Q20H [facility]; Protocol Stop: 12/04/18 21:29 Last Titration: 11/05/18 10:14 Dose: 0 units/hr, 0 mls/hr Documented by: [id number] Cosigned by: [id number] Titration: 11/05/18 06:53 Dose: 1,250 units/hr, 25 mls/hr Documented by: [id number] Cosigned by: [id number] Titration: 11/05/18 05:00 Dose: 1,250 units/hr, 25 mls/hr Documented by: [id number] Cosigned by: [id number] Titration: 11/04/18 23:04 Dose: 1,250 units/hr, 25 mls/hr Documented by: [id number] Cosigned by: [id number] Admin: 11/04/18 21:39 Dose: 1,250 units/hr, 25 mls/hr Documented by: [id number] Cosigned by: [id number] Prednisone (Prednisone) 5 mg PO [facility] Stop: 12/05/18 08:59 Last Admin: 11/05/18 08:51 Dose: 5 mg Documented by: [id number] [facility] Stop: 11/26/18 09:44 Last Admin: 11/05/18 10:50 Dose: 15 mg Documented by: [id number] Vitamin D (Vitamin D3) 2,000 units PO [facility] Stop: 12/05/18 08:59 Last Admin: 11/05/18 08:51 Dose: 2,000 units Documented by: [id number] Medical Decision Making Differential Diagnosis Differential diagnoses includes but is not limited to pneumonia, bronchitis, COPD/Asthma exacerbation, pneumothorax, pulmonary embolism, congestive heart failure, acute coronary syndrome Medical Records Attestation: I reviewed the patient's medical records. Home Medications Current Medication List: was personally reviewed by me Laboratory Data Attestation: I reviewed the patient's lab results. Result diagrams: 11/05/18 09:17 11/05/18 09:17 Lab Results 11/04/18 11/04/18 11/04/18 Range/Units 17:47 17:47 17:47 WBC 6.29 (4.8-10.8) K/uL RBC 4.05 L (4.7-6.1) M/uL Hgb 13.1 L (14.0-18.0) g/dL Hct 38.1 L (42-52) % MCV 94.1 (80-100) fL MCH 32.3 (25-34) pg MCHC 34.4 (32-36) g/dL RDW Std Deviation 53.6 H (36.4-46.3) fL RDW Coeff of Chin 15.6 H (11.5-14.5) % Plt Count 239 (130-400) K/uL MPV 10.7 H (7.4-10.4) fL Immature Gran % (Auto) 0.5 % Neut % (Auto) 66.6 % Lymph % (Auto) 14.5 % Gates % (Auto) 16.9 % Eos % (Auto) 1.3 % Baso % (Auto) 0.2 % Immature Gran # (Auto) 0.03 H (0.00-0.02) K/uL Neut # (Auto) 4.20 (1.4-6.5) K/uL Lymph # (Auto) 0.91 L (1.2-3.4) K/uL Gates # (Auto) 1.06 H (0.11-0.59) K/uL Eos # (Auto) 0.08 (0-0.5) K/uL Baso # (Auto) 0.01 (0-0.2) K/uL PT 10.3 (9.0-12.0) Seconds INR 1.0 (0.9-1.1) APTT 21.4 (21.0-31.0) Seconds PTT Ratio 0.8 Sodium 138 (136-145) mmol/L Potassium 3.9 (3.5-5.1) mmol/L Chloride 107 (98-107) mmol/L Carbon Dioxide 27 (21-32) mmol/L Anion Gap 4.0 (3-11) BUN 24 H (7-18) mg/dl Creatinine 1.09 (0.6-1.4) mg/dl Est Cr Clr Drug Dosing 63.6 ml/min Est GFR ( Amer) 79.8 Est GFR (Non-Af Amer) 68.9 BUN/Creatinine Ratio 21.9 H (10-20) Glucose 71 (70-99) mg/dl Calcium 9.5 (8.5-10.1) mg/dl Total Bilirubin 0.4 (0.2-1) mg/dl AST 22 (15-37) U/L ALT 31 (12-78) U/L Alkaline Phosphatase 92 (45-117) U/L Troponin I < 0.015 (0-0.045) ng/ml Total Protein 8.6 H (6.4-8.2) gm/dl Albumin 3.7 (3.4-5.0) gm/dl Globulin 4.9 H (2.5-4.0) gm/dl Albumin/Globulin Ratio 0.8 L (0.9-2) Lipase 93 (73-393) U/L 11/05/18 11/05/18 11/05/18 Range/Units 03:42 09:17 09:17 WBC 5.51 (4.8-10.8) K/uL RBC 4.24 L (4.7-6.1) M/uL Hgb 13.5 L (14.0-18.0) g/dL Hct 39.4 L (42-52) % MCV 92.9 (80-100) fL MCH 31.8 (25-34) pg MCHC 34.3 (32-36) g/dL RDW Std Deviation 54.3 H (36.4-46.3) fL RDW Coeff of Chin 16.0 H (11.5-14.5) % Plt Count 216 (130-400) K/uL MPV 10.4 (7.4-10.4) fL Immature Gran % (Auto) % Neut % (Auto) % Lymph % (Auto) % Gates % (Auto) % Eos % (Auto) % Baso % (Auto) % Immature Gran # (Auto) (0.00-0.02) K/uL Neut # (Auto) (1.4-6.5) K/uL Lymph # (Auto) (1.2-3.4) K/uL Gates # (Auto) (0.11-0.59) K/uL Eos # (Auto) (0-0.5) K/uL Baso # (Auto) (0-0.2) K/uL PT (9.0-12.0) Seconds INR (0.9-1.1) APTT 57.2 H* (21.0-31.0) Seconds PTT Ratio 2.1 Sodium 139 (136-145) mmol/L Potassium 3.8 (3.5-5.1) mmol/L Chloride 106 (98-107) mmol/L Carbon Dioxide 28 (21-32) mmol/L Anion Gap 5.0 (3-11) BUN 21 H (7-18) mg/dl Creatinine 1.16 (0.6-1.4) mg/dl Est Cr Clr Drug Dosing 59.1 ml/min Est GFR ( Amer) 74.1 Est GFR (Non-Af Amer) 63.9 BUN/Creatinine Ratio 17.9 (10-20) Glucose 123 H (70-99) mg/dl Calcium 9.7 (8.5-10.1) mg/dl Total Bilirubin (0.2-1) mg/dl AST (15-37) U/L ALT (12-78) U/L Alkaline Phosphatase (45-117) U/L Troponin I (0-0.045) ng/ml Total Protein (6.4-8.2) gm/dl Albumin (3.4-5.0) gm/dl Globulin (2.5-4.0) gm/dl Albumin/Globulin Ratio (0.9-2) Lipase (73-393) U/L 11/05/18 Range/Units 09:17 WBC (4.8-10.8) K/uL RBC (4.7-6.1) M/uL Hgb (14.0-18.0) g/dL Hct (42-52) % MCV (80-100) fL MCH (25-34) pg MCHC (32-36) g/dL RDW Std Deviation (36.4-46.3) fL RDW Coeff of Chin (11.5-14.5) % Plt Count (130-400) K/uL MPV (7.4-10.4) fL Immature Gran % (Auto) % Neut % (Auto) % Lymph % (Auto) % Gates % (Auto) % Eos % (Auto) % Baso % (Auto) % Immature Gran # (Auto) (0.00-0.02) K/uL Neut # (Auto) (1.4-6.5) K/uL Lymph # (Auto) (1.2-3.4) K/uL Gates # (Auto) (0.11-0.59) K/uL Eos # (Auto) (0-0.5) K/uL Baso # (Auto) (0-0.2) K/uL PT (9.0-12.0) Seconds INR (0.9-1.1) APTT 48.0 H* (21.0-31.0) Seconds PTT Ratio 1.8 Sodium (136-145) mmol/L Potassium (3.5-5.1) mmol/L Chloride (98-107) mmol/L Carbon Dioxide (21-32) mmol/L Anion Gap (3-11) BUN (7-18) mg/dl Creatinine (0.6-1.4) mg/dl Est Cr Clr Drug Dosing ml/min Est GFR ( Amer) Est GFR (Non-Af Amer) BUN/Creatinine Ratio (10-20) Glucose (70-99) mg/dl Calcium (8.5-10.1) mg/dl Total Bilirubin (0.2-1) mg/dl AST (15-37) U/L ALT (12-78) U/L Alkaline Phosphatase (45-117) U/L Troponin I (0-0.045) ng/ml Total Protein (6.4-8.2) gm/dl Albumin (3.4-5.0) gm/dl Globulin (2.5-4.0) gm/dl Albumin/Globulin Ratio (0.9-2) Lipase (73-393) U/L ECG Data Attestation: I personally reviewed and interpreted this ECG as follows: Indication: SOB/dyspnea Rate (beats per minute): 68 Rhythm: normal sinus Findings: + T-wave inversion (Inferior); no nonspecific-ST abn Comparison ECG Date: from (02/17/15) Change: no significant change Blood Pressure Blood Pressure Findings: Normal blood pressure Blood Pressure Disposition: further management by hospitalist NOLVIA Trivedi The patient is a 68-year-old male who presented to the emergency department for an evaluation of chest pain. The patient was recently diagnosed with abnormal lymph nodes in his abdomen. This was felt to be consistent with a lymphoma requiring biopsy. For this reason the patient had a CT the chest done today for further evaluation as well as for location of further lymph nodes which could be easier to biopsy. The patient was noted to have a pulmonary embolus on his CAT scan and was called and told to return to the emergency department. I discussed the patient's laboratory and radiographic studies with him. Because of his vital signs I discussed his case with the [facility] hospitalist group. I would defer anticoagulation to their judgment because the patient may require further workup or possibly biopsy of a lymph node. I discussed this plan with the patient he was agreeable. Impression & Plan Pulmonary embolus Discharge Plan Visit Data *Final* Discharge Date/Time: 11/04/18 20:41 Chief Complaint: Abnormal Labs/Diagnostic Testing Stated Complaint: PE ED Provider: Pan Burden Discharge Problem: Pulmonary embolus Patient Disposition: Admitted As Inpatient Discharge Instructions Interventions: ED Discharge Assessment Last Done: 11/04/18 20:41 Discharge Problem: Pulmonary embolus Qualifiers: Pulmonary embolism type: unspecified Chronicity: acute Acute cor pulmonale presence: without acute cor pulmonale Qualified Code(s): I26.99 - Other pulmonary embolism without acute cor pulmonale The scribe's documentation has been prepared under my direction and personally reviewed by me in its entirety. I confirm that the note above accurately reflects all work, treatment, procedures, and medical decision making performed by me.
[2018-11-04] MEDS ORDERED: HEPARIN IV BOLUS 6,000 UNITS in SYRINGE 0 ML IV ONE (21:11)
[2018-11-04] MEDS ORDERED: Heparin Adult STANDARD Wt-Based Dextrose 5% 25,000 units/500 mL IV SCH (21:30)
[2018-11-05 04:42] LABS: Partial Thromboplastin Ratio 2.1
[2018-11-05 04:55] LABS: Partial Thromboplastin Time 57.2 Seconds (21.0-31.0)
[2018-11-05] MEDS ORDERED: predniSONE 5 MG TAB PO SCH (09:00)
[2018-11-05] MEDS ORDERED: FOLIC ACID 1 MG TAB PO SCH (09:00)
[2018-11-05] MEDS ORDERED: CHOLECALCIFEROL 1,000 UNITS TAB PO SCH (09:00)
[2018-11-05 09:28] LABS: Hematocrit (blood only) 39.4 % (42-52); Hemoglobin 13.5 g/dL (14.0-18.0); Mean Corpuscular Hgb Conc 34.3 g/dL (32-36); Mean Corpuscular Volume 92.9 fL (80-100); Mean Platelet Volume 10.4 fL (7.4-10.4); Platelet Count 216 K/uL (130-400); RDW Standard Deviation 54.3 fL (36.4-46.3); Red Blood Count 4.24 M/uL (4.7-6.1); White Blood Count 5.51 K/uL (4.8-10.8)
[2018-11-05] MEDS ORDERED: RIVAROXABAN 15 MG TAB PO SCH (09:45)
[2018-11-05 09:52] LABS: Partial Thromboplastin Ratio 1.8
[2018-11-05 10:03] LABS: BUN Creatinine Ratio 17.9 (10-20); Calcium 9.7 mg/dl (8.5-10.1); Creatinine Clr Calc Pharmacy 59.1 ml/min; Est GFR (African American) 74.1; Est GFR (Non-African American) 63.9; Potassium 3.8 mmol/L (3.5-5.1)
--- NOTE | 2018-11-10 05:53 | Discharge Summary ---
Date of Service date of admission - November 04, 2018 date of discharge - November 05, 2018 Admission HPI Per Admitting Provider Very pleasant 68yo male with recently discovered intra-abdominal mass concerning for lymphoma and long-standing psoriatic arthritis on chronic prednisone who presents as a referral from the [facility] due to incidentally discovered RLL pulmonary embolus. About 2 weeks ago the patient presented to our ER with flu-like symptoms and abdominal pain. CT of the abdomen/pelvis revealed a large intra-abdominal mass. He was referred to Dr. Harrison Jefferson at the Cancer Center. Dr. Jefferson recommended a CT of the chest to see if there was a more easily accessible lymph node or other tissue that would be amenable to biopsy. The CT chest was completed today and this showed the solitary pulmonary embolus. Following the CT the patient was referred to the ER for management. Mr. Jim states that despite 2+ months of nightsweats, fatigue, weight loss, abdominal pain & bloating, occasional fevers with chills, and mild dyspnea he has remarkably been able to maintain an active lifestyle. 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 He reports a mild cough for 1-2 days but no central chest pain nor pleuritic chest pain. He has dyspnea only with extreme exertion or with a long walk. He has never had DVT or PE. Lastly, the patient had been taking Enbrel for his psoriatic arthritis and this was stopped by Dr. Jefferson because of the high concern of lymphoma. His arthritis has been stable despite being off of such. Principal Diagnosis RLL pulmonary embolus Discharge Exam Constitutional well developed and well nourished; no acute distress and not ill appearing ENMT external ear and nose normal, oropharynx normal Respiratory normal respiratory effort, lungs clear to auscultation Cardiovascular Rate/Rhythm: regular rate and regular rhythm Heart Sounds: normal S1 and normal S2; no murmur Vessels: posterior tibial pulses present and dorsalis pedis pulses present; no JVD Gastrointestinal (Abdomen) Inspection/Auscultation: + abdomen distended and normal bowel sounds Percussion/Palpation: abdomen nontender and no hepatosplenomegaly Psychiatric A+Ox3, euthymic affect Lymphatic + axillary lymphadenopathy (right - about 1cm); no preauricular lymphadenopathy, no cervical lymphadenopathy, no subclavicular lymphadenopathy and no inguinal lymphadenopathy Discharge Data Allergies Allergy/AdvReac Type Severity Reaction Status Date / Time Fish Containing Products Allergy Intermediate ALLERGY TO Verified 11/04/18 18:26 SEAFOOD-HIVES shellfish derived Allergy Intermediate ALLERGY TO Verified 11/04/18 18:26 SEAFOOD-HIVES tamsulosin AdvReac Mild HEADACHES Verified 11/04/18 18:26 CRAB CAKES Allergy Intermediate hives Uncoded 11/04/18 18:26 Ordered Studies 1. CTA chest - IMPRESSION: 1. Right lower lobe pulmonary artery filling defect indicative of pulmonary embolism. 2. Slight increased prominence of axillary lymph nodes, the largest of which is located in the right measuring 12 x 9 mm 3. Increased prominence of right cardiophrenic angle lymph nodes. 4. Borderline enlarged 9 mm AP window lymph node 5. Mildly enlarged right hilar lymph node 6. No evidence of focal pulmonary consolidation. No suspicious pulmonary masses. 2. b/l LE venous dopplers - IMPRESSION: Nonocclusive thrombus seen within the bilateral posterior tibial veins and a l eft peroneal vein. Hospital Course (1) Pulmonary embolus: Seen incidentally on chest CT which was obtained as outpatient by Dr. Juliane Coker in preparation for tissue biopsy for definitive diagnosis of his intraabdominal mass. His solitary PE is likely cancer-related as there is high suspicion he has lymphoma. He was initially placed on heparin drip and, after checking that the cost was reasonable, he was transitioned to oral xarelto. He will take 15mg BID x 21 days, then decrease to 20mg daily thereafter. He was hemodynamically stable his entire stay and never required oxygen. He had no dyspnea or other chest symptoms referrable to the PE. (2) DVT (deep venous thrombosis): b/l LE DVTs in setting of right lower lobe PE and suspected lymphoma. (3) Intraabdominal mass: Discovered 2 weeks ago. Highly concerning for lymphoma. The plan is for biopsy of the intraabdominal mass by Dr. Jose Larson unless an easier option is available for biopsy (e.g. - axillary lymph node seen on his CT chest). The patient's care plan was discussed with Dr. Jefferson prior to discharge. He will be referred back to Dr. Larson to determine the best location for biopsy and tissue diagnosis. Our hospitalist team will coordinate his care with Dr. Larson' office. (4) Psoriatic arthritis: Stable. Continue prednisone. Celebrex was discontinued due to concern of heightened bleeding risk in light of the initiation of xarelto. (5) Gastroesophageal reflux: Cont PPI. Total Time Total Time Spent Total Time Spent (In Minutes): 35 Total Time Includes: Examination of the Patient, Discharge Planning, Medication Reconciliation and Communication With Other Providers Discharge Plan Discharge Items Patient Disposition: Home - Self-Care Reason For Visit: PULMONARY EMBOLUS Discharge Diagnosis: 1. solitary pulmonary embolus (blood clot) of right lung 2. DVT (blood clots) of both legs Discharge Goals: Diagnostic testing Activity: As commented below Activity Comment: avoid activities that could lead to injury & bleeding (no cutting trees,etc Non-emergency contact: Surgeon and Oncologist Call non-emergency contact if: you have any medication questions and your temperature is above 100.5 Follow-up/Referrals: Baron Larson DO, FACS [Physician] - (please see Dr. Neo URIBEP for biopsy; we will help coordinate this.) Harrison Jefferson [Physician] - (see Dr Jefferson within 1 week at the [facility]) Han Turpin [Primary Care Provider] - Diet: Regular Addtl Provider Instructions: From Adrian Lucio - Hospitalist - You were admitted due to an incidentally found PE (pulmonary embolus - which is a blood clot that traveled to the lungs) located in the right lung. We also found blood clots (DVTs) in the legs. After discussion with your oncologist we will be treating your blood clots with xarelto. For the first 3 weeks of treatment you will take xarelto 15mg twice a day. This will be in the form of a "starter pack." Take your first dose TONIGHT. After the starter pack/3-week initial course is complete you will then change to xarelto 20mg once a day. Dr. Jefferson can follow you for this problem. You will take this for at least 6 months but possibly longer. Additional instructions about blood thinners - Medication Instructions: * Xarelto is a medicine prescribed to prevent blood clots * Xarelto will thin your blood and help prevent new clots * Take your medications exactly as directed * Never skip a dose. Never take a double dose. If you miss a dose, take it as soon as you remember Risk of Adverse Drug Reactions and Interactions: * Xarelto increases your risk of bleeding * It is very important to talk with your doctor about all of the other medicines, antibiotics, vitamins or herbal products that you are taking * All of your medication must be approved by your doctor, including new medicines Diet: * You do not have to change your diet while taking Xarelto Call your Primary Care doctor or Oncologist if you experience any of the following: * Swelling or Pain in your leg * Sudden, continuous pain deep in a muscle * Pain that worsens when you are active or when you stand still for a long time * Chest Pain * Sudden Shortness of Breath * Rapid or pounding heart beat * Fainting * Dizziness * Cough with blood or bloody sputum * Sweating more than normal * Bruises * Heavy or uncontrolled bleeding * Blood in your urine, stool or vomit * Black or tarry stools * Severe Nosebleeding Caring for Your Self at Home: * Avoid sitting, standing or lying down for long periods without moving your legs and feet * When traveling by car, stop to get out and move around at least once every 3 hours * On long airplane, train or bus rides, get up and move around when possible * If you can't get up, wiggle your toes and tighten your calves to keep your blood moving At this time we also recommend - 1. STOP YOUR CELEBREX. DO NOT TAKE any other [id number] anti- inflammatory pill (motrin, etc) without getting permission from Dr. Jefferson. 2. TAKE your prevacid (lansoprazole) 30mg every morning for stomach protection. 3. Again avoid activities that could lead to head injury or increased risk of bleeding (power tools, yard work, etc) Follow-up -- We will coordinate your follow-up with Dr. Larson from surgery in order to expedite a biopsy for definitive diagnosis We also recommend you follow-up with Dr. Jefferson within the next week Return to [facility] if -- * you have persistent fevers over 100.5 degrees * any concerns of bleeding (nosebleeding, GI bleeding, blood in the urine, etc) * worsening shortness of breath or chest pain * worsening abdominal pain * any other concerns Prescriptions: New Xarelto 15 mg (42)- 20 mg (9) tablets,dose pack 1 ea PO DIRECTED Qty: 51 RF: 0 Xarelto 20 mg tablet 20 mg PO DAILY Qty: 30 RF: 5 Continued prednisone 5 mg Tablet 5 mg PO QAM RF: 0 methotrexate sodium 2.5 mg Tablet 15 mg PO WK RF: 0 folic acid 1 mg Tablet 1 mg PO QAM RF: 0 clobetasol 0.05 % Ointment 1 applic TOPICAL BID PRN (Reason: AFFECTED SKIN AREA) RF: 0 cholecalciferol (vitamin D3) [Vitamin D3] 2,000 unit Capsule 2,000 unit PO QAM RF: 0 Changed lansoprazole [Prevacid] 30 mg Capsule,Delayed Release(Dr/Ec) 30 mg PO DAILY Qty: 30 RF: 0 Discontinued celecoxib [Celebrex] 200 mg Capsule 200 mg PO QAM RF: 0 Stand-Alone Forms: [facility]/Other Patient Handouts: Embolism Pulmonary, ED DVT Discharge Orders: Discharge Order (Routine); Ordered 11/05/18 Ordered By: Adrian Lucio Admission Data Admit Date/Time: 11/04/18 19:34 Attending Provider: Adrian Lucio Admit Provider: Adrian Lucio Primary Care Provider: Han Turpin Other Providers: Noe Rodriguez Service: Medical Other Interventions: Discharge Summary Assessment (RN) Last Done: 11/05/18 10:41 Pending Studies at Discharge: No DC Date/Time DO NOT enter until pt leaves facility: 11/05/18 11:55
== END 2018-11-05 11:55 | disposition home or self-care (01) ==
LOC: ED 16:41 → 4E 16:41